=== PATIENT | male | born 1995 | race Caucasian/White ===

== ENCOUNTER 2016-10-06 18:43 | Emergency (ER) | payer SELFPAY ==
[~2016-10-06] VITALS: Ht 180.3 cm; Wt 71.1 kg
[~2016-10-06 18:43] MED LIST: NO ROUTINE MEDS
[2016-10-06 18:46] VITALS: Ht 180.3 cm; Wt 71.1 kg
--- OUTSIDE RECORDS SUMMARY | 2016-10-06 18:47 | XMS REPORT ---
Author Author Lianna Coto Organization [employer] Address Unknown Phone Unavailable Care Team Providers Care Manager Merchandising Name Role Phone Lianna Coto CP Unavailable Allergies, Adverse Reactions, Alerts Substance Reaction Event Type N.K.D.A. Info Not Available Non Drug Allergy Problems Problem Type Condition ICD-9 Code Onset Dates Condition Status Assessment Ingrowing nail 703.0 Active Medications Medication Code System Code Instructions Start Date End Date Status Dosage Keflex [facility] [address]-14 500 MG Orally every 6 hrs January 09, 2015 1 capsule Procedures Procedure Coding System Code Date Lidocaine CPT-4 J2001 January 02, 2015 Excision of nail and nail matrix, partia CPT-4 16704 January 02, 2015 Results No Known Results Summary Purpose [employer] Submission
--- OUTSIDE RECORDS SUMMARY | 2016-10-06 18:47 | XMS REPORT ---
Author Author Vaughn Gillette Organization [employer] Address Unknown Phone Unavailable Care Team Providers Care Tub Chucker Name Role Phone Vaughn Gillette CP Unavailable Allergies, Adverse Reactions, Alerts Substance Reaction Event Type N.K.D.A. Info Not Available Non Drug Allergy Problems Problem Type Condition ICD-9 Code Onset Dates Condition Status Assessment Ingrowing nail 703.0 Active Assessment Cellulitis/abscess, other specified sites 682.8 Active Medications Medication Code System Code Instructions Start Date End Date Status Dosage Keflex [facility] [address]-59 500 MG Orally every 6 hrs January 09, 2015 1 capsule Procedures Procedure Coding System Code Date OFFICE VISIT, EST-LOW COMPLEXITY (15 MIN.) CPT-4 21825 January 02, 2015 Vital Signs Date/Time: January 02, 2015 BMIPercentile 65.44 % Height 69.5 in Wt Percentile 65.93 % Weight 162.12 lbs Temperature 98.1 F Blood Pressure Diastolic 80 mm Hg Blood Pressure Systolic 124 mm Hg Cardiac Monitoring Heart Rate 76 /min BMI 23.60 Index Oximetry 98 % Respiratory Rate 16 /min Results No Known Results Summary Purpose [employer] Submission
--- OUTSIDE RECORDS SUMMARY | 2016-10-06 18:47 | XMS REPORT | Continuity of Care Document ---
Author Author [facility] Organization [facility] Address Unknown Phone Unavailable Allergies Active Description Code Type Severity Reaction Onset Reported/Identified Relationship to Patient Clinical Status Yes No Known Allergies No Known Allergies Drug Allergy Unknown N/A 01/10/2014 Medications Problems Procedures Code Description Performed By Performed On 28.0 PERITONSILLAR I Fransisco Mackenzie MD, Eric Conway 01/10/2014 Results Test Result Range GRAM STAIN - 01/10/14 21:40 Microbiology Encounters ACCT No. Visit Date/Time Discharge Status Pt. Type Provider Facility Loc./Unit Complaint [id number] 01/10/2014 20:30:00 2013 00:01:00 DIS Emergency Kailash Austin DO [facility] [place]
--- OUTSIDE RECORDS SUMMARY | 2016-10-06 18:47 | XMS REPORT | Continuity of Care Document ---
Author Author [facility] Organization [facility] Address Unknown Phone Unavailable Support Name Relationship Address Phone ELLY DOTY MD Caregiver [address] [place] [address] GUTIERREZ LOVE MD Caregiver [address] [place] [address] [place] [phone] JEF BOWEN Next Of Kin [address] [place] [address] Insurance Providers Payer Name Policy Number Subscriber Name Relationship Self Pay Angus Poe 18 Self Problems Medical Problems Problem Onset Date Status Peritonsillar abscess Unknown Active Mononucleosis Unknown Active Medications No known medications. Social History Social History Problem Response Recorded Date/Time Smoking Status Current every day smoker 01/10/2014 3:47pm Hospital Discharge Instructions No hospital discharge instructions. Plan of Care No plan of care. Functional Status Query Response Date Recorded Physical Hygiene Self January 10, 2014 3:47pm Dressing Self January 10, 2014 3:47pm Ambulation Self January 10, 2014 3:47pm Diet Self January 10, 2014 3:47pm Mental Status Alert Oriented January 10, 2014 3:47pm Physical Hygiene Self January 10, 2014 3:47pm Dressing Self January 10, 2014 3:47pm Ambulation Self January 10, 2014 3:47pm Diet Self January 10, 2014 3:47pm Allergies, Adverse Reactions, Alerts Allergen Type Severity Reaction Status Last Updated No Known Allergies Active 01/10/14 Immunizations No immunization records. Vital Signs Acute Vital Signs Vital Response Date/Time Temperature (Fahrenheit) 99.1 deg F (96.8 - 99.1) Temperature (Calculated Celsius) 37.87435 degrees C (36.0 - 37.3) Pulse Rate (adult) 85 bpm (60 - 100) Respiratory Rate 18 breaths/min (10 - 20) O2 Sat by Pulse Oximetry 100 % (90 - 100) Blood Pressure 136/63 mm Hg Height 5 ft 9 in Weight 157 lb Body Mass Index 23.0 kg/m^2 Results Test Source Date Result Interp. Ref. Range Comments Alanine Aminotransferase (ALT/SGPT) January 10, 2014 4:50pm 49 U/L N 21-72 Albumin January 10, 2014 4:50pm 4.1 G/DL N 3.5-5.0 Albumin/Globulin Ratio January 10, 2014 4:50pm 1.2 RATIO N 1.1-2.2 Alkaline Phosphatase January 10, 2014 4:50pm 183 U/L N 70-260 Anion Gap January 10, 2014 4:50pm 12 MEQ/L N 5-15 Aspartate Amino Transf (AST/SGOT) January 10, 2014 4:50pm 33 U/L N 10-40 BUN/Creatinine Ratio January 10, 2014 4:50pm 11 RATIO N 6-26 Band Neutrophils # January 10, 2014 2:55pm 1.5 T/MM3 - Band Neutrophils % January 10, 2014 2:55pm 10.0 % H 0-6 Blood Urea Nitrogen January 10, 2014 4:50pm 9.0 MG/DL N 9-20 Calcium Level January 10, 2014 4:50pm 9.5 MG/DL N 8.4-10.2 Calculated Osmolality January 10, 2014 4:50pm 272 MOSM/KG N 261-280 Carbon Dioxide Level January 10, 2014 4:50pm 30 MEQ/L N 22-30 Chloride Level January 10, 2014 4:50pm 100 MEQ/L N 98-107 Creatinine January 10, 2014 4:50pm 0.8 MG/DL N 0.2-1.2 Globulin January 10, 2014 4:50pm 3.4 G/DL N 2.4-3.6 Glucose Level January 10, 2014 4:50pm 107 MG/DL N 75-110 Hematocrit January 10, 2014 2:55pm 44.4 % N 35-49 Hemoglobin January 10, 2014 2:55pm 15.1 GM/DL N 11.5-16 Lymphocytes # (Manual) January 10, 2014 2:55pm 1.1 T/MM3 L 1.5-6.8 Lymphocytes % (Manual) January 10, 2014 2:55pm 7.0 % L 28-48 Mean Corpuscular Hemoglobin January 10, 2014 2:55pm 27.8 UUG N 25-35 Mean Corpuscular Hemoglobin Concent January 10, 2014 2:55pm 34.0 GM/DL N 31 -37 Mean Corpuscular Volume January 10, 2014 2:55pm 81.8 UM3 N 77-102 Mean Platelet Volume January 10, 2014 2:55pm 10.2 UM3 N 9.4-12.4 Monocytes # (Manual) January 10, 2014 2:55pm 1.1 T/MM3 H 0-0.8 Monocytes % (Manual) January 10, 2014 2:55pm 7.0 % N 0-9.0 Monoscreen January 10, 2014 4:50pm Positive - Neutrophils # (Manual) January 10, 2014 2:55pm 7.3 T/MM3 N 1.5-8.0 Neutrophils % (Manual) January 10, 2014 2:55pm 48.0 % N 31-62 Platelet Count January 10, 2014 2:55pm 210 T/MM3 N 130-400 Potassium Level January 10, 2014 4:50pm 4.0 MEQ/L N 3.6-5 RDW Standard Deviation January 10, 2014 2:55pm 39.2 FL N 36.9-50.2 Red Blood Count January 10, 2014 2:55pm 5.43 M/MM3 H 4.00-5.30 Sodium Level January 10, 2014 4:50pm 142 MEQ/L N 134-144 Total Bilirubin January 10, 2014 4:50pm 0.60 MG/DL N 0.20-1.30 Total Protein January 10, 2014 4:50pm 7.5 G/DL N 6.3-8.2 White Blood Count January 10, 2014 2:55pm 15.3 T/MM3 H 4.5-13.5 Chemistry Specimen Hemolysis January 10, 2014 4:50pm < 15 0-25 0-25: No Hemolysis.26-70: Slight Hemolysis - can falsely elevate K and Urine Protein. 71-285: Moderate Hemolysis - can falsely elevate K, Troponin I, CA 19-9, PTH, CSF GLucose, and Urine Protein, and can falsely decrease Phenytoin. 286-999: Gross Hemolysis - can falsely elevate K, Troponin I, CA 19-9, PTH, CSF Glucose, and Urine Protine, and can falsely decrease Phenytoin. Recommend specimen recollection. Turbidity January 10, 2014 4:50pm < 20 0-20 Reactive Lymphocytes % January 10, 2014 2:55pm 28.0 % H 0-0 Reactive Lymphocytes # January 10, 2014 2:55pm 4.3 T/MM3 H 0-0 Venous Blood Lactate January 10, 2014 4:50pm 1.4 MMOL/L N 0.6-2.2 Procalcitonin January 10, 2014 4:50pm 0.08 NG/ML - PCT </=0.5 ng/mL - sepsis not likely;PCT >0.5 and </=2 ng/mL - sepsis possible; PCT >2 ng/mL - sepsis likely; PCT >/=10 ng/mL - systemic inflammatory response - sepsis or septic shock highly indicated. Icterus Index January 10, 2014 4:50pm < 2 0-7 Procedures No known history of procedures. Encounters Encounter Location Date/Time Departed Emergency Room [facility] 01/10/14 3:31pm Recent Diagnosis
--- OUTSIDE RECORDS SUMMARY | 2016-10-06 18:56 | XMS REPORT | Continuity of Care Document ---
Author Author [facility] Organization [facility] Address Unknown Phone Unavailable Allergies [...] Status Pt. Type Provider Facility Loc./Unit Complaint [id number] 01/10/2014 20:30:00 2013 00:01:00 DIS Emergency Kailash Austin DO [facility] [place]
--- OUTSIDE RECORDS SUMMARY | 2016-10-06 18:56 | XMS REPORT | Continuity of Care Document ---
Author Author [facility] Organization [facility] Address Unknown Phone Unavailable Support Name Relationship Address Phone ELLY DOTY MD Caregiver [address] [place] [address] GUTIERREZ LOVE MD Caregiver [address] [place] [address] [place] [phone] JEF BOWEN Next Of Kin [address] [place] [address] Insurance Providers Payer Name Policy Number [...] F (96.8 - 99.1) Temperature (Calculated Celsius) 37.16165 degrees C (36.0 - 37.3) Pulse Rate [...] Encounters Encounter Location Date/Time Departed Emergency Room [facility] 01/10/14 3:31pm Recent Diagnosis
--- NOTE | 2016-10-06 18:58 | ERPDOC ---
Departure Disposition Decision Date: Oct 06, 2016 Disposition Decision Time: 20:39 Disposition: 01 DISCHARGED HOME, SELF-CARE Impression Impression Impression: Primary Impression: Viral gastroenteritis Additional Impression: Hives Severity: Severe Condition: Improved Seen By: Physician only Referrals: AYLEEN MCGINNIS DO (Family) Patient Instructions: Gastroenteritis (ED), Urticaria (ED) Problems/Meds/Labs Reviewed?: Yes Medications reviewed and manag: Yes Additional Instructions: Compazine 10 mg 4 times daily for nausea/cramps May also use Benadryl up to 50 mg 4 times daily as needed for rash Drink 2 quarts of fluid daily May use any recreational drugs for at least 7 days, especially marijuana. Follow up care ordered?: Yes Mental Status: Alert Scripts Prochlorperazine Maleate (Compazine) 10 Mg Tablet 10 MG PO QID, #30 TAB 0 Refills Prov: JASBIR DUNCAN MD 10/06/16 HPI - Abdominal Pain General Chief Complaint: General Stated Complaint: HIVES/ABD PAIN/CHEST HURTS Time Seen by Provider: 18:49 Source: patient History/Exam Limitations: no limitations HPI - Abdominal Pain Initial Comments 3 day hx of nausea, vomiting, cramps in the epigastrium, and diarrhea. Pt tried smoking "more weed" to treat his sx, but this strangely did not work. Pt routinely uses methamphetamine and marijuana almost daily. Occurred At: home Onset: Rapid Quality: cramping Location: epigastric Associated Symptoms: nausea/vomiting, DENIES: back pain, chest pain, diaphoresis, fatigue, fever/chills, headache, heartburn, rash, shortness of breath, swelling/mass in abdomen, syncope, weakness Hx of Similar Symptoms: Yes Allergies: Coded Allergies: No Known Allergies (Unverified , 08/14/15) Past History Past Medical History GI: ulcers (as a child) Psychological: drug abuse Surgical History Denies Surgeries Family History Family PMH: FOUND: cancer, diabetes, hypertension Vaccines Hx Influenza Vaccination: No Social History Smoking Status: Current every day smoker Does patient use chewing tobac: No Second Hand Exposure: No Substance Use Type: marijuana, methamphetamine Substance last used: hours (ago) (73), days (ago) Alcohol Intake: none Review of Systems Constitutional Constitutional: chills, DENIES: anorexia, appetite decrease, appetite increase , dizziness, fatigue, fever, night sweats, syncope, weakness ENMT Ears: DENIES: pain Hearing: DENIES: hearing loss, tinnitus Balance: DENIES: vertigo Mouth/Throat: DENIES: change in swallowing, change in voice, hoarsness, painful swallowing, sore throat Cardiovascular Cardiac: DENIES: chest pain, dyspnea on exertion Rhythm/Rate: DENIES: irregular beat, palpitations, tachycardia Vascular: DENIES: pedal edema Pulmonary Respiratory: DENIES: cough, dyspnea, pleuritic chest pain GI Upper Abdomen: heartburn/indigestion, nausea, pain, vomiting, DENIES: dysphagia , food intolerances, hematemesis Lower Abdomen: diarrhea, DENIES: blood in stool, kush-colored stools, constipation, melena, pain, painful BM General: DENIES: burning, dysuria, frequency, pain, urgency Musculoskeletal General: DENIES: cramps, joint pain, joint swelling, pain, weakness Integumentary Skin: DENIES: rash, sores Neurological General: DENIES: headache, numbness, tingling, vertigo, weakness Psychiatric Psychiatric: DENIES: anxiety, depression, nervousness Physical Exam General General Nourishment: well nourished, well developed, appears stated age, thin General Body Habitus: disheveled Vitals and Pain First Documented Vital Signs Date Time Temp Pulse Resp B/P Pulse Ox O2 Delivery O2 Flow Rate FiO2 10/06/16 18:46 119 18 122/97 98 Room Air Weight: Kilograms: Height (feet): 6 Height (inches): 0.00 Triage Pain Scale: RN VS reviewed by Provider: Yes Normal Exams: Head: Normocephalic w/o trauma Eyes: Pupils are PERRLA w/ EOMI, No scleral icterus, irritation, or foreign bodies noted ENMT: No facial trauma, nasal exudates, pharyngeal erythema, or exudates are noted Neck: Full range of motion, without adenopathy, JVD, bruits or thyromegaly Chest/Resp: Clear all olivera, with good airflow, and symmetry bilaterally Lymphatic: No lymphadenopathy, or lymphedema noted Musculoskeletal: No tenderness, or deformity noted, good range of motion, all extremities Integumentary: No rashes, hives, or bruising noted, hair and nails, without abnormality Neurologic: Patient is alert, and oriented, cranial nerves, motor/sensory/ cerebellar, exams w/o gross deficits, to observation Psychiatric: Patient exhibits, appropriate attention, emotion and affect Cardiovascular (brief) Cardiac: FOUND: regular rhythm, NOT FOUND: click, gallop, murmur, pedal edema, regular rate (tachy) Capillary Refill: <2 sec Pulses: all distal extremities, equal, strong Abdomen (brief) Abdominal Brief: FOUND: soft, tender (epigastrium tenderness.), NOT FOUND: bowel normo active x4 (diminished but present x4), distended, hepatosplenomegaly , pulsatile mass Progress Results/Orders Orders Procedure Category Date Status Time Iv Lock (Ed Only) EDM 10/06/16 Transmitted 18:53 Cbc W/Auto LAB 10/06/16 Complete Diff-Reflex Manual Cmp - Comprehensive LAB 10/06/16 Complete Metabolic Lipase LAB 10/06/16 Complete Drug Screen LAB 10/06/16 Complete Urine-Test At [facility] 18:53 EKG EKG 10/06/16 Taken Troponin I W LAB 10/06/16 Complete Hemolysis Index Normal Saline (Normal PHA 10/06/16 Complete Saline Iv) 19:00 Diphenhydramine PHA 10/06/16 Complete (Benadryl) 19:00 Ranitidine (Zantac) PHA 10/06/16 Complete 19:00 Ondansetron Inj PHA 10/06/16 Complete (Zofran) 19:00 Ketorolac (Toradol) PHA 10/06/16 Complete 19:00 Lab Results Laboratory Tests Test 10/06/16 19:15 10/06/16 20:08 White Blood Count 7.9T/MM3 Red Blood Count 6.15M/MM3 Hemoglobin 17.6GM/DL Hematocrit 50.2% Mean Corpuscular Volume 81.6UM3 Mean Corpuscular Hemoglobin 28.6UUG Mean Corpuscular Hemoglobin Concent 35.1GM/DL RDW Standard Deviation 40.7FL Platelet Count 298T/MM3 Mean Platelet Volume 11.2UM3 Immature Granulocyte % (Auto) 0.4% Neutrophils (%) (Auto) 67.5% Lymphocytes (%) (Auto) 21.5% Monocytes (%) (Auto) 9.6% Eosinophils (%) (Auto) 0.9% Basophils (%) (Auto) 0.1% Absolute Immature Granulocyte (auto 0.03T/MM3 Absolute Neutrophils (auto) 5.4T/MM3 Absolute Lymphocytes (auto) 1.7T/MM3 Absolute Monocytes (auto) 0.8T/MM3 Absolute Eosinophils (auto) 0.1T/MM3 Absolute Basophils (auto) 0.0T/MM3 Turbidity < 20 Sodium Level 141MEQ/L Potassium Level 4.0MEQ/L Chloride Level 103MEQ/L Carbon Dioxide Level 24MEQ/L Anion Gap 14MEQ/L Blood Urea Nitrogen 9.0MG/DL Creatinine 0.8MG/DL Glomerular Filtration Rate Calc 123 BUN/Creatinine Ratio 11RATIO Glucose Level 102MG/DL Calculated Osmolality 270MOSM/KG Calcium Level 9.6MG/DL Total Bilirubin 0.90MG/DL Icterus Index < 2 Aspartate Amino Transf (AST/SGOT) 26U/L Alanine Aminotransferase (ALT/SGPT) 33U/L Alkaline Phosphatase 142U/L Troponin I < 0.012ng/ml Total Protein 7.4G/DL Albumin 4.3G/DL Globulin 3.1G/DL Albumin/Globulin Ratio 1.4RATIO Lipase 48U/L Chemistry Specimen Hemolysis 31 Urine Opiates Screen NegativeNG/ML Urine Oxycodone Screen NegativeNG/ML Urine Methadone Screen NegativeNG/ML Urine Propoxyphene Screen NegativeNG/ML Urine Barbiturates Screen NegativeNG/ML Urine Tricyclic Antidepressants NegativeNG/ML Urine Phencyclidine Screen NegativeNG/ML Urine Amphetamines Screen PositiveNG/ML Urine Methamphetamines Screen PositiveNG/ML Urine Benzodiazepines Screen NegativeNG/ML Urine Cocaine Screen NegativeNG/ML Urine Cannabinoids Screen PositiveNG/ML Urine Drug Screen Confirmation Pending Urine Drug Screen Information Pending Medications Current ED Medications Sodium Chloride (Normal Saline IV) 1,000 ml @ 0 mls/hr Q0M ONCE IV Last administered on 10/06/16 19:04; Start 10/06/16 at 19:00; Stop 10/06/16 at 19:01 ; Status DC Diphenhydramine HCl (Benadryl) 50 mg O ONCE IV Last administered on 10/06/16 19:08; Start 10/06/16 at 19:00; Stop 10/06/16 at 19:01; Status DC Ranitidine HCl (Zantac) 300 mg O ONCE PO Last administered on 10/06/16 19:04 ; Start 10/06/16 at 19:00; Stop 10/06/16 at 19:01; Status DC Ondansetron HCl (Zofran) 4 mg O ONCE IV Last administered on 10/06/16 19:04; Start 10/06/16 at 19:00; Stop 10/06/16 at 19:01; Status DC Ketorolac Tromethamine (Toradol) 30 mg O ONCE IV Last administered on 19:10; Start 10/06/16 at 19:00; Stop 10/06/16 at 19:01; Status DC Progress Progress Pt given Toradol, Zofran, Benadryl (for hives) and 1LNS bolus - to relief EKG - sinus tachycardia without ischemia, infarction, or ectopy CBC -n CMP/L - n UDS - for amphetamines, methamphetamines, and marijuana only JASBIR DUNCAN MD Oct 06, 2016 18:58
[2016-10-06] MEDS ORDERED: NORMAL SALINE 1,000 ML IV ONE (19:00)
[2016-10-06] MEDS ORDERED: KETOROLAC 30mg/ml INJECTION IV ONE (19:00)
[2016-10-06] MEDS ORDERED: DiphenhydrAMINE 50 MG/ML INJECTION IV ONE (19:00)
[2016-10-06] MEDS ORDERED: RANITIDINE 150 MG TABLET PO ONE (19:00)
[2016-10-06] MEDS ORDERED: ONDANSETRON 4mg/2ml INJECTION IV ONE (19:00)
[2016-10-06 19:29] LABS: BASOPHILS % (AUTO) 0.1 % (0-2); EOSINOPHILS # (AUTO) 0.1 T/MM3 (0-0.5); EOSINOPHILS % (AUTO) 0.9 % (0-4); HCT - HEMATOCRIT 50.2 % (41-53); HGB - HEMOGLOBIN 17.6 GM/DL (13.5-17.5); IMMATURE GRANULOCYTE # (AUTO) 0.03 T/MM3 (0.00-0.03); IMMATURE GRANULOCYTE % (AUTO) 0.4 % (0.0-0.5); LYMPHOCYTES # (AUTO) 1.7 T/MM3 (1-4.8); LYMPHOCYTES % (AUTO) 21.5 % (23-45); MEAN CORPUSCULAR HGB 28.6 UUG (26-34); MEAN CORPUSCULAR HGB CONC(MCHC 35.1 GM/DL (31-37); MEAN CORPUSCULAR VOLUME 81.6 UM3 (80-100); MEAN PLATELET VOLUME 11.2 UM3 (9.4-12.4); MONOCYTES # (AUTO) 0.8 T/MM3 (0-0.8); MONOCYTES % (AUTO) 9.6 % (0-9.0); NEUTROPHILS #(AUTO)-ABSOLUTE 5.4 T/MM3 (1.8-7.7); NEUTROPHILS % (AUTO) 67.5 % (33-66); RED BLOOD COUNT 6.15 M/MM3 (4.50-5.90); WBC - WHITE BLOOD COUNT 7.9 T/MM3 (4.5-11.0)
--- NOTE | 2016-10-06 19:30 | NUR ---
STATUS PT IS RELAXED AND LAYING ON BED. PT RPEORTS THE ITCHING HAS DECREASED. ABD PAIN HAS DECREASED TO 4/10 CRAMPING, CHEST BURNING DECREASED TO 3/10. PT REPORTS OVERALL FEELING BETTER THEN WHEN HE ARRIVED
[2016-10-06 19:39] LABS: ALBUMIN 4.3 G/DL (3.5-5.0); ALBUMIN/GLOBULIN RATIO 1.4 RATIO (1.1-2.2); ALKALINE PHOSPHATASE 142 U/L (38-126); ALT (SGPT) 33 U/L (21-72); ANION GAP 14 MEQ/L (5-15); AST (SGOT) 26 U/L (17-59); BUN/CREATININE RATIO 11 RATIO (6-26); CALCIUM 9.6 MG/DL (8.4-10.2); CHLORIDE 103 MEQ/L (98-107); CO2 - CARBON DIOXIDE 24 MEQ/L (22-30); CREATININE 0.8 MG/DL (0.8-1.5); GLOMERULAR FILTRATION RATE 123; GLUCOSE 102 MG/DL (75-110); LIPASE 48 U/L (23-300); SODIUM 141 MEQ/L (134-144); TOTAL PROTEIN 7.4 G/DL (6.3-8.2)
--- NOTE | 2016-10-06 20:05 | NUR ---
UA/UDS UNDERWRITING TECHNICIAN IS HERE TO COLLECT UA. PT AMBULATORY TO THE BATHROOM. PT ABLE TO URINATE. COLLECTED BY UNDERWRITING TECHNICIAN
[2016-10-06 20:31] LABS: AMPHETAMINE SCREEN,URINE POSITIVE; BARBITURATE SCREEN,URINE NEGATIVE; BENZODIAZEPINES SCREEN,URINE NEGATIVE; CANNABINOID SCREEN,URINE POSITIVE; COCAINE SCREEN,URINE NEGATIVE; METHADONE SCREEN, URINE NEGATIVE; METHAMPHETAMINE SCREEN, URINE POSITIVE; OPIATE SCREEN,URINE NEGATIVE; PHENCYCLIDINE SCREEN,URINE NEGATIVE; TRICYCLIC ANTIDEPRESSANT,URINE NEGATIVE
[2016-10-06] MEDS ORDERED: PROC-14 PO (20:40)
[2016-10-06] MEDS ORDERED: PROCHLORPERAZINE 10 MG TABLET PO ONE (20:45)
[2016-10-06 20:55] VITALS: BP 119/89; PULSE 98; RESP 14; O2SAT 98
== END 2016-10-06 20:55 | disposition home or self-care (01) ==
LOC: ED 18:43
DX: A08.4 Viral intestinal infection, unspecified (principal); L50.9 Urticaria, unspecified
CPT/HCPCS: 80053; 80306; 83690; 84484; 85025; 93005